=== PATIENT | female | born 1975 | race Two or more races ===

== ENCOUNTER 2017-08-18 00:48 | Emergency (ER) | payer BC, OTHER ==
[2017-08-18] MEDS: LORAZEPAM 2 MG INJ IM (01:14)
== END 2017-08-18 03:32 | disposition home or self-care (01) ==
LOC: E/R 00:48
DX: F41.9 Anxiety disorder, unspecified (principal); F17.210 Nicotine dependence, cigarettes, uncomplicated
CPT/HCPCS: 96372; 99284-25

== ENCOUNTER 2018-08-22 19:58 | Emergency (ER) | payer OTHER, BC ==
[2018-08-22] MEDS: METHYLPREDNISOLONE 125 MG INJ IM (22:03)
[2018-08-22] MEDS: KETOROLAC 60 MG INJ IM (22:04)
== END 2018-08-22 22:23 | disposition home or self-care (01) ==
LOC: FTE 19:58
DX: M54.5 Low back pain (principal)
CPT/HCPCS: 81025; 96372; 99284-25